=== PATIENT | female | born 1975 | race Two or more races ===

== ENCOUNTER 2019-06-21 20:01 | Emergency (ER) | payer OTHER ==
[~2019-06-21] VITALS: Ht 167.6 cm; Wt 63.5 kg
[2019-06-21 20:25] VITALS: BP 133/78
--- NOTE | 2019-06-21 20:38 | NUR ---
Patient discharged to home in stable condition. Written and verbal after care instructions given. Patient verbalizes understanding of instruction. Pt noted w/ steady gaits upon discharge
== END 2019-06-21 20:39 | disposition home or self-care (01) ==
LOC: ER 20:01
DX: I87.2 Venous insufficiency (chronic) (peripheral) (principal); G40.909 Epilepsy, unspecified, not intractable, without status epilepticus; F17.200 Nicotine dependence, unspecified, uncomplicated; Z98.890 Other specified postprocedural states; Z86.19 Personal history of other infectious and parasitic diseases; Z88.0 Allergy status to penicillin; Z88.1 Allergy status to other antibiotic agents; Z59.0 Homelessness